=== PATIENT | male | born 1950 | race Caucasian/White ===

== ENCOUNTER 2024-02-25 16:54 | Emergency (ER) | payer BC ==
[~2024-02-25] VITALS: Ht 190.5 cm; Wt 138.7 kg
[2024-02-25 17:26] VITALS: TEMP 98
[2024-02-25 18:56] LABS: BASOPHILS # (AUTO) 0.1 X10'3 (0-0.2); EOSINOPHILS # (AUTO) 0.2 X10'3 (0-0.9); EOSINOPHILS % (AUTO) 0.7 % (0-6); MEAN CORPUSCULAR VOLUME 90.1 FL (78-98); PLATELET COUNT 151 X10'3 (140-440); RED CELL DISTRIBUTION WIDTH 14.2 % (11.5-14.5)
[2024-02-25 18:58] LABS: BASOPHILS % (AUTO) 0.4 % (0-1); HEMATOCRIT 47.5 % (42.0-52.0); HEMOGLOBIN 15.9 g/dl (14.0-17.9); LYMPHOCYTES # (AUTO) 22.9 X10'3 (1.1-4.8); LYMPHOCYTES % (AUTO) 80.5 % (21-51); MEAN CORPUSCULAR HEMOGLOBIN 30.1 PG (27.0-31.0); MEAN CORPUSCULAR HGB CONC 33.4 g/dL (33.0-36.5); MEAN PLATELET VOLUME 9.2 FL (7.4-10.4); MONOCYTES # (AUTO) 0.8 X10'3 (0-0.9); MONOCYTES % (AUTO) 2.7 % (2-12); NEUTROPHILS # (AUTO) 4.5 X10'3 (1.8-7.7); NEUTROPHILS % (AUTO) 15.7 % (42-75); RED BLOOD COUNT 5.27 X10'6 (4.70-6.10)
[2024-02-25 19:07] LABS: WHITE BLOOD COUNT 28.4 X10'3 (4.5-11.0)
[2024-02-25 19:15] VITALS: RESP 18
[2024-02-25 19:19] LABS: ALANINE AMINOTRANSFERASE 38 U/L (12-78); ALBUMIN/GLOBULIN RATIO 1.2 (1.1-1.5); ALKALINE PHOSPHATASE 60 IU/L (46-116); ANION GAP 10 (8-16); ASPARTATE AMINO TRANSFERASE 31 U/L (10-37); BILIRUBIN,TOTAL 0.7 MG/DL (0.1-1.0); BLOOD UREA NITROGEN 19 MG/DL (7-18); BUN/CREATININE RATIO 22.1 (10.0-20.0); CALCIUM 9.1 MG/DL (8.5-10.1); CHLORIDE 104 MMOL/L (99-107); CREATININE 0.86 MG/DL (0.60-1.10); GLUCOSE 97 MG/DL (70-104); SODIUM 141 MMOL/L (135-145); TOTAL CARBON DIOXIDE 27.4 MMOL/L (24-32); TOTAL PROTEIN 7.4 G/DL (6.4-8.2); eCRCL 93 ML/MIN; eGFR 87 ML/MIN
[2024-02-25 19:21] LABS: C-REACTIVE PROTEIN < 0.05 MG/DL (0.0-0.5)
[2024-02-25 19:34] LABS: BILIRUBIN,URINE NEGATIVE (Neg); CLARITY,URINE SLIGHTLY CLOUDY (Clear); COLOR,URINE YELLOW (Yellow); GLUCOSE, URINE NEGATIVE (Neg); KETONES,URINE NEGATIVE (Neg); LEUKOCYTE ESTERASE ,URINE NEGATIVE (Neg); NITRITES, URINE NEGATIVE (Neg); OCCULT BLOOD,URINE NEGATIVE (Neg); PROTEIN,URINE 30 mg/dl (Neg); UROBILINOGEN,URINE 0.2 E.U/dL (0.2-1.0)
[2024-02-25 19:37] VITALS: BP 141/81; PULSE 56; O2SAT 98
[2024-02-25 19:37] LABS: UA COLLECTION TYPE CLN CATCH MIDSTREAM
[2024-02-25 19:53] LABS: TOTAL CELLS COUNTED 100
[2024-02-25 19:54] LABS: SMUDGE CELLS 1+; TOXIC VACUOLATION FEW
[2024-02-25 20:01] LABS: BACTERIA,URINE FEW /HPF (Neg); RBC,URINE NONE SEEN /HPF (0-2); SQUAMOUS EPITHELIAL CELL,UR FEW /LPF (FEW); WBC,URINE 0-4 /HPF (0-4)
== END 2024-02-25 20:56 | disposition home or self-care (01) ==
LOC: ER 16:56
DX: D72.820 Lymphocytosis (symptomatic) (principal); R79.9 Abnormal finding of blood chemistry, unspecified; G62.9 Polyneuropathy, unspecified; Z88.2 Allergy status to sulfonamides
CPT/HCPCS: 36415; 73660; 80053; 81001; 82948; 83605; 84145; 85007; 85025; 85651; 86140; 99284